=== PATIENT | female | born 1950 | race Caucasian/White ===

== ENCOUNTER 2017-02-14 08:43 | Outpatient (CLI) | payer MEDICARE, OTHER ==
[2017-02-14 09:25] LABS: eGFR (African) > 60; eGFR (Non-African) > 60
== END 2017-02-14 08:44 ==
LOC: LAB 08:43
PROVIDERS: ATTEND Family Medicine
DX: E78.5 Hyperlipidemia, unspecified (principal); E11.9 Type 2 diabetes mellitus without complications; E03.9 Hypothyroidism, unspecified
CPT/HCPCS: 36415; 80053; 80061; 83036; 84443

== ENCOUNTER 2017-10-01 11:22 | Outpatient (CLI) | payer MEDICARE, OTHER | END 2017-10-01 11:23 | LOC: RT 11:22 | PROVIDERS: ATTEND Family Medicine | DX: R07.9 Chest pain, unspecified (principal) ==

== ENCOUNTER 2018-03-28 08:02 | Outpatient (CLI) | payer MEDICARE, OTHER ==
[2018-03-28 10:01] LABS: eGFR (Non-African) > 60
== END 2018-03-28 08:03 ==
LOC: LAB 08:02
PROVIDERS: ATTEND Family Medicine
DX: E78.2 Mixed hyperlipidemia (principal); E11.9 Type 2 diabetes mellitus without complications; E03.9 Hypothyroidism, unspecified
CPT/HCPCS: 36415; 80053; 80061; 83036; 84443

== ENCOUNTER 2019-03-27 08:52 | Outpatient (CLI) | payer MEDICARE, OTHER ==
[2019-03-27 10:15] LABS: eGFR (Non-African) > 60
[2019-03-27 10:16] LABS: HDL 37 mg/dL (>40)
[2019-03-30 08:33] LABS: A1C 6.7 % (<5.7)
== END 2019-03-27 08:54 ==
LOC: LAB 08:52
PROVIDERS: ATTEND Family Medicine
DX: R73.9 Hyperglycemia, unspecified (principal); E78.5 Hyperlipidemia, unspecified; E03.9 Hypothyroidism, unspecified
CPT/HCPCS: 36415; 80053; 80061; 83036; 84443

== ENCOUNTER 2019-07-27 13:40 | Outpatient (CLI) | payer MEDICARE, OTHER | END 2019-07-27 13:45 | LOC: LABRHC 13:40 | PROVIDERS: ATTEND Family Medicine | DX: E11.9 Type 2 diabetes mellitus without complications (principal) | CPT/HCPCS: 83036 ==